=== PATIENT | male | born 1960 | race Caucasian/White ===

== ENCOUNTER 2022-05-04 07:15 | Day surgery (SDC) | payer BC ==
[~2022-05-04 07:15] MED LIST: ALPRAZolam 0.25 MG TAB PO PRN; ALPRAZolam 0.5 MG TAB PO PRN; ASPIRIN 325 MG TAB PO STA; ATORVASTATIN 80 MG TAB PO STA; HEPARIN SODIUM,PORCINE 10,000 UNIT in SODIUM CHLORIDE 0.9% 1,000 ML IRRIGATION PRN; HEPARIN SODIUM,PORCINE 2,500 UNIT in SODIUM CHLORIDE 0.9% 250 ML IRRIGATION PRN; NITROGLYCERIN SL TABS 0.4 MG TAB SUBLINGUAL PRN; SODIUM CHLORIDE 0.9% 1,000 ML in EMPTY BAG 1 BAG IV SCH
[2022-05-04 07:35] VITALS: RESP 18; TEMP 98.1
[2022-05-04 07:37] LABS: Basophils # (A) 0.1 k/uL (0-0.2); Basophils % (A) 1 %; Eosinophils # (A) 0.5 k/uL (0-0.7); Eosinophils % (A) 6 %; HCT 40.7 % (39.0-53.0); HGB 14.3 gm/dL (13.0-17.5); Lymphocytes # (A) 2.6 k/uL (1.0-4.8); Lymphocytes % (A) 29 %; MCH 32.4 pg (25.0-35.0); MCHC 35.1 g/dL (31.0-37.0); MCV 92.4 fL (80.0-100.0); Mean Platelet Volume 7.9; Monocytes # (A) 0.7 k/uL (0-1.0); Monocytes % (A) 8 %; Neutrophils # (A) 4.9 k/uL (1.3-7.7); Neutrophils % (A) 55 %; Platelet Count 290 k/uL (150-450); RDW 12.4 % (11.5-15.5)
[2022-05-04] MEDS ORDERED: VERAPAMIL 2.5 MG/ML 2 ML AMP ONE (07:45)
[2022-05-04] MEDS ORDERED: HEPARIN SODIUM 1,000 UN/ML (10ML VL) ONE (07:45)
[2022-05-04 07:49] LABS: African American GFR (CKD) >90 (>60 ml/min/1.73 sqM); Anion Gap 9 mmol/L; Blood Urea Nitrogen 15 mg/dL (9-20); Calcium 8.9 mg/dL (8.4-10.2); Carbon Dioxide 26 mmol/L (22-30); Chloride 105 mmol/L (98-107); Glucose 133 mg/dL (74-99); Non-African American GFR(CKD) >90 (>60 ml/min/1.73 sqM); Potassium 4.1 mmol/L (3.5-5.1); Sodium 140 mmol/L (137-145)
[2022-05-04] MEDS ORDERED: fentaNYL (PF) 50 MCG/ML 2 ML AMP IV ONE (08:01)
[2022-05-04] MEDS ORDERED: MIDAZOLAM 2 MG/2 ML VIAL IV ONE (08:01)
[2022-05-04] MEDS ORDERED: fentaNYL (PF) 50 MCG/ML 2 ML AMP ONE (08:03)
[2022-05-04] MEDS ORDERED: LIDOCAINE 1% INJ 10MG/ML (5 ML VIAL-PF) SQ ONE (08:04)
[2022-05-04] MEDS ORDERED: VERAPAMIL SYRINGE (5 MG/10 ML) INTRAARTER ONE (08:05)
[2022-05-04] MEDS ORDERED: HEPARIN SODIUM 1,000 UN/ML (10ML VL) IV ONE (08:07)
[2022-05-04] MEDS ORDERED: IOPAMIDOL-370 100ML BTL INJ ONE (08:13)
--- NOTE | 2022-05-04 08:17 | P.CARDCATH ---
Description of Procedure: PROCEDURES PERFORMED: Left heart catheterization, bilateral coronary angiography INDICATION: Abnormal stress test CONSENT:I have discussed the risks, benefits and alternative therapies for the above-mentioned procedure and for both sedation/analgesia as well as necessary blood product administration, if indicated, as they pertain to this patient. The patient has indicated understanding and acceptance of the risks and procedures discussed. PROCEDURE: After the risks, benefits and alternatives of the above mentioned procedure explained in detail with the patient, informed consent was obtained. Patient was taken to the catheterization lab and prepped and draped in usual fashion. 1% lidocaine was used to anesthetize the right radial artery. A 6- Mexican sheath was placed in the right radial artery using modified Seldinger technique. Left coronary angiography was performed with a 5-Mexican JL 3.5 catheter and right coronary angiography was performed with a 5-Mexican JR5 catheter in various views. A 5-Mexican FR5 catheter was inserted into the left ventricle and pressure measurements were obtained. The right radial sheath was removed and a TR band was placed with hemostasis achieved. The patient tolerated the procedure well. Patient was transported back to the post catheterization holding area in stable condition. Conscious Sedation: Patient was monitored under the direct supervision of vision of myself for conscious sedation using Versed and fentanyl for a total duration of 13 minutes HEMODYNAMICS: Aorta: 144/72 LV: 138/6, LVEDP 18 SELECTIVE CORONARY ARTERIOGRAPHY: LEFT MAIN: The left main is a large caliber vessel which bifurcates into the LAD and circumflex. There is no significant stenosis. LEFT ANTERIOR DESCENDING CORONARY ARTERY: LAD is a large caliber vessel which wraps around to the apex. There is no significant stenosis. LEFT CIRCUMFLEX CORONARY ARTERY: Left circumflex is a moderate caliber vessel without significant stenosis. RIGHT CORONARY ARTERY: The right coronary artery is a large caliber vessel which gives off a PDA and PLV branch and is the dominant vessel. There is no sig nificant stenosis. FINAL IMPRESSION: 1. Normal coronary arteries as described above. 2. Mildly elevated left sided filling pressures PLAN: 1. Aggressive risk factor modification per most recent ACC/AHA guidelines. 2. Follow-up in the office in 1-2 weeks.
[2022-05-04] MEDS ORDERED: HYDROmorphone 0.5 MG/0.5 ML SYRINGE IVP ONE (10:10)
[2022-05-04 11:37] VITALS: BP 149/79; PULSE 68
== END 2022-05-04 12:10 | disposition home or self-care (01) ==
LOC: CATHCVL 07:15
PROVIDERS: ATTEND Internal Medicine
DX: I44.2 Atrioventricular block, complete (principal); R94.39 Abnormal result of other cardiovascular function study; F17.200 Nicotine dependence, unspecified, uncomplicated; I10 Essential (primary) hypertension; E78.5 Hyperlipidemia, unspecified
CPT/HCPCS: 93458; 80048; 85025; C1769; C1894; J2250; J2001; J3010; J1644; J1170; Q9967

== ENCOUNTER → 2023-03-15 | Outpatient (CLI) | payer BC ==
--- NOTE | 2023-03-15 07:49 | US ---
EXAMINATION TYPE: US liver DATE OF EXAM: 03/15/2023 COMPARISON: NONE CLINICAL INDICATION: Male, 62 years old with history of R74.01 ELEVATION OF LEVELS OF LIVER TRANSAMIN ASE L; Elevated LFT's TECHNIQUE: Multiple sonographic images of the right upper quadrant are obtained. FINDINGS: EXAM MEASUREMENTS: Liver Length: 16.9 cm Gallbladder Wall: 0.4 cm CBD: 0.4 cm Right Kidney: 12.6 x 6.6 x 5.6 cm MECHANICAL LABORATORY TECHNICIAN NOTES: Pancreas: wnl, tail obscured by overlying bowel gas Liver: Heterogeneous, difficult to penetrate Gallbladder: Wall at the upper limits of normal measuring 4 mm in a nondistended lumen. no evidence for cholelithiasis. Evidence for sonographic Ascencio's sign: No CBD: wnl Right Kidney: Lobulated contour, no evidence of hydro IMPRESSION: No evidence for acute process. Hepatic steatosis.
== END | disposition home or self-care (01) ==
LOC: RADUSWWP 07:25
PROVIDERS: ATTEND Family Medicine
DX: K76.0 Fatty (change of) liver, not elsewhere classified (principal); R74.01 Elevation of levels of liver transaminase levels
CPT/HCPCS: 76705

== ENCOUNTER 2024-02-10 16:10 | Day surgery (SDC) | payer BC ==
[2024-02-10] MEDS: SODIUM CHLORIDE 0.9% 1,000 ML IV ONE (16:37)
[2024-02-10] MEDS: SODIUM CHLORIDE 0.9% 1,000 ML IV SCH (16:37)
[2024-02-10 16:48] VITALS: BP 142/84; RESP 16; TEMP 98.2
[2024-02-10] MEDS: IOPAMIDOL-370 100ML BTL IVP ONE ×2 (18:37)
[2024-02-10 18:52] VITALS: PULSE 72
--- NOTE | 2024-02-10 18:58 | P.EPPROC ---
- EP Procedure Note Electrophysiology Procedure Note: Diagnosis A 10 point reduction in LV systolic function with class II heart failure symptoms Recent change to 100% RV pacing, pacemaker dependency His sister has a history of left bundle branch block and cardiomyopathy In 2016 he presented with 2-1 heart block At that time his LV function was normal He has a dual-chamber pacemaker but with an ICD lead in case he had developed cardiomyopathy/sarcoidosis However, this was not the case and he is done well with dual-chamber pacing up until recently Recent drop in LV systolic function secondary to RV pacing Left upper extremity venogram Subclavian/axillary venous junction occlusion but reconstitution of this vein enough to permit passage of a LB/LV lead Cinefluoroscopy of the leads revealed an atrial lead, screw-in in the right atrial appendage and a single coil ICD lead in the RV apex but used as a pacemaker Dual-chamber pacemaker, chronic since 2016, Biotronik Plan Upgrade to a biventricular pacemaker for management of heart failure and reduced LV systolic function Discussed with the patient We will schedule the procedure for him
== END 2024-02-10 19:01 | disposition home or self-care (01) ==
LOC: CATHEP 16:10
PROVIDERS: ATTEND Internal Medicine Clinical Cardiac Electrophysiology
DX: I11.0 Hypertensive heart disease with heart failure (principal); I50.20 Unspecified systolic (congestive) heart failure; I44.2 Atrioventricular block, complete; I42.9 Cardiomyopathy, unspecified; I65.29 Occlusion and stenosis of unspecified carotid artery; D86.9 Sarcoidosis, unspecified; E78.5 Hyperlipidemia, unspecified; Z95.0 Presence of cardiac pacemaker; Z79.82 Long term (current) use of aspirin; Z87.891 Personal history of nicotine dependence; Z82.49 Family history of ischemic heart disease and other diseases of the circulatory system; Z79.899 Other long term (current) drug therapy
CPT/HCPCS: 36005; 75820

== ENCOUNTER 2024-09-04 07:43 | Day surgery (SDC) | payer BC ==
[2024-08-31 16:10] VITALS: BMI 34.4
[2024-09-04 08:16] LABS: Basophils # (A) 0.1 k/uL (0-0.2); Basophils % (A) 1 %; Eosinophils # (A) 0.6 k/uL (0-0.7); Eosinophils % (A) 7 %; HCT 41.3 % (39.0-53.0); HGB 13.8 gm/dL (13.0-17.5); Lymphocytes # (A) 2.8 k/uL (1.0-4.8); Lymphocytes % (A) 33 %; MCH 32.3 pg (25.0-35.0); MCHC 33.5 g/dL (31.0-37.0); MCV 96.6 fL (80.0-100.0); Mean Platelet Volume 7.7; Monocytes # (A) 0.6 k/uL (0-1.0); Monocytes % (A) 7 %; Neutrophils # (A) 4.4 k/uL (1.3-7.7); Neutrophils % (A) 51 %; Platelet Count 273 k/uL (150-450); RBC 4.28 m/uL (4.30-5.90); RDW 13.4 % (11.5-15.5); WBC 8.6 k/uL (3.8-10.6)
[2024-09-04] MEDS: SODIUM CHLORIDE 0.9% 1,000 ML IV SCH (08:16)
[2024-09-04] MEDS: IV FLUID CONTINUATION 1,000 ML IV ONE (08:20)
[2024-09-04 08:40] LABS: ALT 53 U/L (4-49); AST 57 U/L (17-59); African American GFR (CKD) >90 (>60 ml/min/1.73 sqM); Albumin 4.7 g/dL (3.5-5.0); Alkaline Phosphatase 104 U/L (38-126); Anion Gap 13 mmol/L; Blood Urea Nitrogen 16 mg/dL (9-20); Calcium 9.4 mg/dL (8.4-10.2); Carbon Dioxide 22 mmol/L (22-30); Chloride 103 mmol/L (98-107); Glucose 147 mg/dL (74-99); Non-African American GFR(CKD) 79 (>60 ml/min/1.73 sqM); Potassium 3.7 mmol/L (3.5-5.1); Sodium 138 mmol/L (137-145); Total Bilirubin 1.2 mg/dL (0.2-1.3); Total Protein 7.5 g/dL (6.3-8.2)
[2024-09-04] MEDS: HEPARIN SOD,PORK IN 0.45% NACL 25,000 UNIT in 0.45% NACL 1 250ML.BAG IV ONE (09:24)
[2024-09-04] MEDS ORDERED: fentaNYL (PF) 50 MCG/ML 2 ML AMP ONE (09:33)
[2024-09-04] MEDS ORDERED: PROPOFOL 10 MG/ML 20 ML VIAL IV ONE (09:33)
[2024-09-04] MEDS ORDERED: HEPARIN SODIUM,PORCINE 10,000 UNIT/ML 1 ML VIAL ONE (09:33)
[2024-09-04] MEDS ORDERED: PHENYLEPHRINE 10 MG/ML VIAL ONE (09:33)
[2024-09-04] MEDS ORDERED: SUCCINYLCHOLINE CHLORIDE 200 MG/10 ML VIAL IV ONE (09:33)
[2024-09-04] MEDS ORDERED: MIDAZOLAM 2 MG/2 ML VIAL ONE (09:33)
[2024-09-04] MEDS ORDERED: ISOPROTERENOL 250 MCG/1.25 ML SYR IV ONE (09:33)
[2024-09-04] MEDS: IOPAMIDOL-370 100ML BTL INJ ONE ×2 (09:54→11:24)
[2024-09-04] MEDS: LIDOCAINE 1% INJ 10MG/ML (20 ML MDV) SQ ONE (10:06)
--- NOTE | 2024-09-04 12:30 | P.HPCAR ---
History of Present Illness This is Dr. Rosa dictating an H/P on this patient The patient was interviewed and examined IMPRESSION / ASSESSMENT: Paroxysmal atrial fibrillation with RVR Pacemaker dependent with 100% RV pacing, status post Biotronik dual-chamber pacemaker Gradual reduction in LV systolic function with an ejection fraction now at 50%. 2 years back it was a 65% PLAN: A-fib ablation today. Heparin dose calculated. Continue Eliquis Left upper extremity venogram Subsequently upgrade to a biventricular pacemaker for management of RV pacing induced cardiomyopathy HPI Patient has gradually developed a reduction in LV systolic function. Alongside he has developed shortness of breath. He has had sustained atrial fibrillation of recent onset consistent with 100% RV pacing and early development of cardiomyopathy. Denies any fever chills cough expectoration. No single ROS: No fever chills or rigors, no cough, phlegm or expectoration, no nausea, vomiting or diarrhea, no hematuria, dysuria, no musculoskeletal complaints, no strokes or seizures, no skin lesions. EXAMINATION: Blood pressure 120/69 mmHg afebrile pulse rate in the 60s Breath sounds are clear no rhonchi no crackles Heart sounds S1-S2 normal no murmurs No lower extremity edema REVIEW OF LABS, ECG & MEDICAL DATA White count 8.6 thousand, hematocrit 41, platelet count 273,000 Electrolytes normal Physical Exam Vitals: Vital Signs Temp Pulse Resp BP BP Pulse Ox 09/04/24 12:19 65 16 120/69 96 09/04/24 12:04 96.8 F L 64 16 119/82 91 L 09/04/24 08:17 97.7 F 73 18 133/79 97 Intake and Output 09/03/24 09/04/24 09/04/24 22:59 06:59 14:59 Intake Total 944 Balance 944 Intake: IV 944 Other: Weight 114.3 kg Past Medical History Past Medical History: Hyperlipidemia, Hypertension, Osteoarthritis (OA), Rheumatoid Arthritis (RA) Additional Past Medical History / Comment(s): recent stress test, pacemaker see dr Rosa's h & p History of Any Multi-Drug Resistant Organisms: None Reported Past Surgical History: Joint Replacement, Orthopedic Surgery, Pacemaker Additional Past Surgical History / Comment(s): right knee replaced, ankle reconstructions Past Anesthesia/Blood Transfusion Reactions: No Reported Reaction Type of Cardiac Device: Permanent Pacemaker Device Placement Date:: 2015 Smoking Status: Former smoker - Past Family History Father Family Medical History: AICD/Pacemaker Physical Examination Vital Signs Temp Pulse Resp BP BP Pulse Ox 09/04/24 12:19 65 16 120/69 96 09/04/24 12:04 96.8 F L 64 16 119/82 91 L 09/04/24 08:17 97.7 F 73 18 133/79 97 Intake and Output 09/03/24 09/04/24 09/04/24 22:59 06:59 14:59 Intake Total 944 Balance 944 Intake: IV 944 Other: Weight 114.3 kg Results 09/04/24 08:00 09/04/24 08:00 Cardiac Enzymes 09/04/24 Range/Units 08:00 AST 57 (17-59) U/L CBC 09/04/24 Range/Units 08:00 WBC 8.6 (3.8-10.6) k/uL RBC 4.28 L (4.30-5.90) m/uL Hgb 13.8 (13.0-17.5) gm/dL Hct 41.3 (39.0-53.0) % Plt Count 273 (150-450) k/uL Comprehensive Metabolic Panel 09/04/24 Range/Units 08:00 Sodium 138 (137-145) mmol/L Potassium 3.7 (3.5-5.1) mmol/L Chloride 103 (98-107) mmol/L Carbon Dioxide 22 (22-30) mmol/L BUN 16 (9-20) mg/dL Creatinine 0.99 (0.66-1.25) mg/dL Glucose 147 H (74-99) mg/dL Calcium 9.4 (8.4-10.2) mg/dL AST 57 (17-59) U/L ALT 53 H (4-49) U/L Alkaline Phosphatase 104 (38-126) U/L Total Protein 7.5 (6.3-8.2) g/dL Albumin 4.7 (3.5-5.0) g/dL Current Medications Generic Name Dose Route Start Last Admin Trade Name Freq PRN Reason Stop Dose Admin Sodium Chloride 1,000 mls @ 20 mls/hr 09/04/24 08:07 09/04/24 08:16 Saline 0.9% IV 10/04/24 08:06 20 mls/hr .Q24H XI Administration Lactated Ringer's 1,000 mls @ 20 mls/hr 09/04/24 08:07 Lactated Ringers IV 10/04/24 08:06 .Q24H XI Intake and Output 09/03/24 09/04/24 09/04/24 22:59 06:59 14:59 Intake Total 944 Balance 944 Intake: IV 944 Other: Weight 114.3 kg Patient Weight 09/05/24 06:59 Weight 114.3 kg 09/04/24 08:00 09/04/24 08:00
--- NOTE | 2024-09-04 12:43 | P.EPPROC ---
- EP Procedure Note Electrophysiology Procedure Note: PROCEDURE A. fib ablation DIAGNOSIS Paroxysmal atrial fibrillation, symptomatic, refractory to therapy Associated RV paced cardiomyopathy with a drop in left ventricular ejection fraction by at least 15 percentage points RESULT No left atrial appendage mass seen on intracardiac echo Successful A. fib ablation/pulmonary vein isolation of all veins using cryo- ablation Complete entrance block in all 4 veins confirmed No evidence for phrenic nerve injury Left atrial septal ablation Esophageal deflection YES, right-sided esophagus Left upper extremity venogram shows a patent left subclavian and axillary vein PROCEDURE DETAILS Written informed consent prior to procedure. Patient brought to the EP lab. General anesthesia given. Heparin administered. A city maintained above 300 seconds Both groins prepped and draped per protocol and venous sheaths placed. Esophagus intubated, circa catheter for temperature monitoring an endoscope for possible esophageal deflection. Phrenic nerve monitoring performed. Esophageal temperature monitoring performed. Esophageal deflection performed if circa catheter overlapping with the balloon or circa temperature less than 27.5C Intracardiac echocardiography performed. Pericardium evaluated. Left atrial appendage evaluated. Left atrium evaluated along with pulmonary veins Transseptal catheterization performed under fluoroscopic guidance and intracardiac echo guidance Cryoablation sheath exchanged, balloon catheter along with achieve catheter placed in the left atrium. Pulmonary veins isolated in the following sequence: Left superior pulmonary vein followed by left inferior pulmonary vein, followed by right inferior pulmonary vein and lastly right superior pulmonary vein. Phrenic nerve stimulation along with capture thresholds within the SVC and right superior pulmonary vein to identify the phrenic nerve proximity to the cryo- balloon. Pulmonary veins isolated and confirmed with entrance and exit block. Phrenic nerve integrity confirmed at the end of the procedure Ablation of the left atrial septum performed with cannulation of the superior branch of the right inferior or the inferior branch of the right superior vein to achieve ablation of the posterior septum of the left atrium. Ablation of electrograms confirmed Diagnostic catheters for the high right atrium, His bundle, coronary sinus placed. LA and RA pressures recorded LA pressure: EP study with CS pacing and on high-dose Isopril QRS 185, QT 474, VT 213 Paced ventricular rhythm Sinus node recovery time 115 8 ms High-dose Isopril employed Burst stimulation performed No inducible atrial fibrillation Venous sheaths were removed and hemostasis assured with a closure device. Patient extubated and transferred to recovery PROCEDURES PERFORMED Diagnostic EP study CS pacing and recording Left and right transseptal catheterization Catheter the mapping of the tachycardia Intracardiac echocardiography Pulmonary vein isolation with transseptal and comprehensive EPS, [id number] Drug infusion, +[id number] Linear ablation, left atrium, +[id number]
[2024-09-04] MEDS ORDERED: ACETAMINOPHEN TAB 325 MG TAB PO PRN (14:59)
[2024-09-04 15:06] LABS: Chol/HDL Ratio 2.58 Ratio; LDL Cholesterol,Calculated 61.2 mg/dL (0.0-131.0)
[2024-09-04] MEDS: LACTATED RINGERS 1,000 ML IV SCH (16:45)
[2024-09-04] MEDS: carvediloL 12.5 MG TAB PO SCH (18:06)
[2024-09-04] MEDS: COLCHICINE 0.6 MG EACH PO SCH (21:23)
[2024-09-04] MEDS: APIXABAN 5 MG TAB PO SCH (21:23)
[2024-09-04] MEDS: ACETAMINOPHEN IV (For NPO) 1,000 MG in EMPTY BAG 1 BAG IVPB ONE (23:41)
[2024-09-05 08:14] VITALS: BP 113/72; PULSE 69; RESP 17; TEMP 99
[2024-09-05] MEDS: ATORVASTATIN 20 MG TAB PO SCH (09:35)
[2024-09-05] MEDS: amLODIPine 10 MG TAB PO SCH (09:35)
[2024-09-05] MEDS: ASPIRIN 81 MG PO SCH (09:35)
[2024-09-05] MEDS: VALSARTAN 160 MG TAB PO SCH (09:36)
[2024-09-05] MEDS: hydroCHLOROthiazide 25 MG TAB PO SCH (09:36)
--- NOTE | 2024-09-05 10:12 | P.PRLE ---
RE: Александр Gonzalez Dear Dr. Ruby Fountain underwent successful PVI for management of paroxysmal atrial fibrillation He has also developed reduction in LV systolic function and his atrial fibrillation heralds the onset of heart failure to come. After 2 months I will proceed with an upgrade to a biventricular pacemaker and hopefully this will result in an improvement in his LV function and reduction in signals of progressive heart failure including atrial fibrillation Thank you for entrusting me with the care of the patient Warm regards Sincerely Андрей Rosa
--- NOTE | 2024-09-06 11:23 | P.DS ---
Providers Expected date of discharge: 09/05/24 Attending physician: Андрей Rosa Primary care physician: Marty Ferrara [facility] Course: This is a 64-year-old male patient brought into the hospital under the care of Dr. Rosa due to paroxysmal atrial fibrillation with RVR. Patient underwent atrial fibrillation ablation yesterday. Patient remains in sinus rhythm. EKG has been reviewed by Dr. Rosa. No medication changes have been made. Patient to follow-up in the office in 1 week. Plan is to proceed with upgrade to a biventricular pacemaker to improve his LV function. This arrangement will be made through the office. Patient will be discharged today in stable condition. Physical examination: Gen: This is a 64-year-old male in no acute distress VS: reviewed HEENT: Head is atraumatic, normocephalic. Pupils equal, round. Sclerae is anicteric. NECK: Supple. No JVD. LUNGS: Clear to auscultation. No wheezes or rhonchi. No intercostal retractions. HEART: Regular rate and rhythm. ABDOMEN: Soft No tenderness. EXTREMITIES: No pedal edema. No calf tenderness. NEUROLOGICAL: Patient is awake, alert and oriented x3. Assessment: Paroxysmal atrial fibrillation with RVR status post ablation History of complete heart block status post dual-chamber pacemaker Associated RV paced cardiomyopathy Nurse practitioner note has been reviewed, I agree with documented findings and plan of care. Patient was seen and examined. Plan - Discharge Summary Discharge Rx Participant: Yes New Discharge Prescriptions: Continue Colchicine [Colcrys] 0.6 mg PO BID Aspirin 81 mg PO DAILY carvediloL 37.5 mg PO BID Atorvastatin [Lipitor] 20 mg PO DAILY amLODIPine [Norvasc] 10 mg PO DAILY Valsartan/Hydrochlorothiazide [Valsartan-Hctz 320-25 mg Tab] 1 each PO DAILY Apixaban [Eliquis] 5 mg PO BID allopurinoL 300 mg PO DAILY Discharge Medication List Colchicine [Colcrys] 0.6 mg PO BID 03/08/16 [History] Aspirin 81 mg PO DAILY 04/29/22 [History] Atorvastatin [Lipitor] 20 mg PO DAILY 04/29/22 [History] Valsartan/Hydrochlorothiazide [Valsartan-Hctz 320-25 mg Tab] 1 each PO DAILY 04/29/22 [History] amLODIPine [Norvasc] 10 mg PO DAILY 04/29/22 [History] Apixaban [Eliquis] 5 mg PO BID 08/31/24 [History] carvediloL 37.5 mg PO BID 08/31/24 [History] allopurinoL 300 mg PO DAILY 09/04/24 [History] Follow up Appointment(s)/Referral(s): Андрей Rosa MD [STAFF PHYSICIAN] - 09/12/24 10:45 am (Appointment made at the main office with Diana ) Patient Instructions/Handouts: Cardiac Ablation (DC), Electrophysiology Study (DC) Activity/Diet/Wound Care/Special Instructions: Post EP study - Ablation instructions 1. Keep access sites dry for 2 days. 2. No heavy lifting or straining for 2 days. 3. Avoid bending the hips repeatedly for 2 days. 4. You may go up and down stairs slowly 5. If you have had an ablation for atrial fibrillation or atrial flutter and are on a blood thinner, do not stop the blood thinner even temporarily for 3 months post ablation Call if the following is noted 1. Bleeding, increasing swelling or pain at the access sites. 2. Increasing chest discomfort, especially upon taking a deep breath. 3. Increasing shortness of breath, at rest or with exertion. 4. Undue cough / phlegm 5. Difficulty or pain while swallowing. 6. Pain or change in color in the extremities. 7. Fever, chills, rigors. 8. Increasing headache or neurologic symptoms. 9. Dizziness, fainting, palpitations For patients who have undergone an A-fib ablation /atrial flutter ablation Strict instruction; do NOT stop anticoagulation (Eliquis/Xarelto/Pradaxa) for the next 2 months temporarily, for any elective, nonurgent surgery. This increases the risk of stroke, post A-fib ablation Discharge Disposition: HOME SELF-CARE
== END 2024-09-05 10:06 | disposition home or self-care (01) ==
LOC: CATHEP 07:43 → 6NMEDSUR 11:39 → CATHEP 09-05 10:06
PROVIDERS: ATTEND Internal Medicine Clinical Cardiac Electrophysiology
DX: I48.0 Paroxysmal atrial fibrillation (principal); E78.5 Hyperlipidemia, unspecified; I10 Essential (primary) hypertension; I42.9 Cardiomyopathy, unspecified; M06.9 Rheumatoid arthritis, unspecified; Z79.01 Long term (current) use of anticoagulants; Z87.891 Personal history of nicotine dependence; Z79.899 Other long term (current) drug therapy
CPT/HCPCS: 93623; 93656; 93657; 86900; 86901; 80061; 80053; 85025; 86850; C1894; C1769; C1760 ×2; C1730 ×2; C1759; C1733; C1766; J2003; Q9967; J1644; 93005

== ENCOUNTER 2024-12-04 11:46 | Day surgery (SDC) | payer BC ==
[2024-11-30 11:35] VITALS: BMI 32.5
[~2024-12-04 11:46] MED LIST changes: -ALPRAZolam 0.25 MG TAB PO PRN; -ALPRAZolam 0.5 MG TAB PO PRN; -ASPIRIN 325 MG TAB PO STA; -ATORVASTATIN 80 MG TAB PO STA; -HEPARIN SODIUM,PORCINE 10,000 UNIT in SODIUM CHLORIDE 0.9% 1,000 ML IRRIGATION PRN; -HEPARIN SODIUM,PORCINE 2,500 UNIT in SODIUM CHLORIDE 0.9% 250 ML IRRIGATION PRN; -NITROGLYCERIN SL TABS 0.4 MG TAB SUBLINGUAL PRN; -SODIUM CHLORIDE 0.9% 1,000 ML in EMPTY BAG 1 BAG IV SCH; +ceFAZolin 1 GM in SODIUM CHLORIDE 0.9% IRRIG BTL 250 ML IRRIGATION PRN
[2024-12-04] MEDS: SODIUM CHLORIDE 0.9% 1,000 ML IV SCH ×2 (14:11→18:16)
[2024-12-04] MEDS ORDERED: MIDAZOLAM 2 MG/2 ML VIAL ONE (14:39)
[2024-12-04] MEDS: IV FLUID CONTINUATION 1,000 ML IV ONE (14:39)
[2024-12-04] MEDS ORDERED: HYDROmorphone (PF) 1 MG/ML ONE (14:39)
[2024-12-04] MEDS ORDERED: LIDOCAINE 1% INJ 10MG/ML (20 ML MDV) ONE (14:39)
[2024-12-04] MEDS ORDERED: PHENYLEPHRINE-0.9% NACL SYG 1,000 MCG/10 ML SYRINGE ONE (14:39)
[2024-12-04] MEDS ORDERED: PROPOFOL 10 MG/ML 20 ML VIAL IV ONE (14:39)
[2024-12-04] MEDS ORDERED: fentaNYL (PF) 50 MCG/ML 2 ML AMP ONE (14:39)
[2024-12-04 14:40] LABS: African American GFR (CKD) 48 (>60 ml/min/1.73 sqM); Anion Gap 13 mmol/L; Blood Urea Nitrogen 25 mg/dL (9-20); Calcium 9.3 mg/dL (8.4-10.2); Carbon Dioxide 20 mmol/L (22-30); Chloride 106 mmol/L (98-107); Glucose 116 mg/dL (74-99); Non-African American GFR(CKD) 42 (>60 ml/min/1.73 sqM); Potassium 3.9 mmol/L (3.5-5.1); Sodium 139 mmol/L (137-145)
[2024-12-04] MEDS: ROPIVACAINE 5 MG/ML 30 ML VIAL MISCELLANE ONE (15:25)
[2024-12-04] MEDS: LIDOCAINE 1% INJ 10MG/ML (20 ML MDV) SQ ONE (15:25)
[2024-12-04] MEDS: VANCOMYCIN 1,250 MG in SODIUM CHLORIDE 0.9% 250 ML IVPB ONE (15:30)
--- NOTE | 2024-12-04 17:47 | P.PRLE ---
RE: Александр Gonzalez Dear Marty Fountain underwent upgrade to a biventricular pacemaker with left bundle pacing for management of RV pacing induced cardiomyopathy. I am very hopeful that this will result in an improvement in his LV function in the next 3 to 4 months. He will continue all his other medications unchanged. He maintains sinus rhythm after his prior A-fib ablation and will also continue Eliquis. Thank you for entrusting me with the care of the patient Warm regards Sincerely Андрей Rosa
[2024-12-04 17:50] LABS: Basophils # (A) 0.11 10*3/uL (0.00-0.10); Basophils % (A) 1.3 %; Eosinophils # (A) 0.57 10*3/uL (0.04-0.35); Eosinophils % (A) 6.6 %; HCT 34.9 % (39.6-50.0); HGB 12.2 g/dL (13.0-17.0); Lymphocytes # (A) 3.96 10*3/uL (0.90-5.00); Lymphocytes % (A) 45.9 %; MCH 32.9 pg (27.0-32.0); MCV 94.1 fL (80.0-97.0); Mean Platelet Volume 9.2 fL (9.5-12.2); Monocytes # (A) 0.91 10*3/uL (0.20-1.00); Monocytes % (A) 10.6 %; Neutrophils # (A) 3.05 10*3/uL (1.80-7.70); Neutrophils % (A) 35.4 %; Platelet Count 213 10*3/uL (140-440); RBC 3.71 10*6/uL (4.40-5.60); RDW 12.9 % (11.5-14.5); WBC 8.62 10*3/uL (4.50-10.00)
--- NOTE | 2024-12-04 18:05 | XR ---
EXAMINATION TYPE: XR chest 1V portable DATE OF EXAM: 12/04/2024 5:53 PM COMPARISON: Chest radiographs from 03/11/2016 TECHNIQUE: XR chest 1V portable Portable AP radiograph of the chest. CLINICAL INDICATION:Male, 64 years old with history of Lead placement check; FINDINGS: Lungs/Pleura: There is no evidence of pleural effusion, focal consolidation, or pneumothorax. Pulmonary vascularity: Unremarkable. Heart/mediastinum: Cardiomediastinal silhouette is enlarged and stable. Three lead cardiac conduction device overlying the left hemithorax with lead tips projecting over the right ventricle, right atriu m and coronary sinus. Musculoskeletal: No acute osseous pathology. IMPRESSION: 1. No acute cardiopulmonary disease/process. 2. Three lead cardiac conduction device overlying the left hemithorax with lead tips projecting over the right ventricle, right atrium and coronary sinus. [facility], , 12/04/2024 6:02 PM
[2024-12-04] MEDS: ACETAMINOPHEN IV (For NPO) 1,000 MG in EMPTY BAG 1 BAG IVPB ONE (18:09)
--- NOTE | 2024-12-04 19:09 | P.EPPROC ---
- EP Procedure Note Electrophysiology Procedure Note: Diagnosis Cardiomyopathy, early congestive heart failure, early atrial fibrillation secondary to 100% RV pacing, underlying complete heart block Status post dual-chamber pacemaker, Biotronik, implanted in 2016. Dual-chamber pacemaker at [facility] Procedure plan for an upgrade to a biventricular pacemaker Procedure Biventricular pacemaker upgrade with conduction system pacing (left bundle pacing) Details Patient was brought to the EP lab in a fasting state. Written informed consent was obtained prior to the procedure. Conscious sedation provided by DOCK COORDINATOR. IV antibiotics administered. Local anesthesia administered. A 4 cm incision made in the pectoral area. Subfascial pocket made. Venous accesses obtained Calcified capsule. Careful dissection to remove the capsule and freed the leads. Leads interrogated thereafter and good condition with stable parameters. Pocket dissection took a long time on account of the calcification. Venous sheaths placed. Leads placed in the right heart. 2 sets of pacing cables were used; one for backup temporary pacing and the other for assessment of current of injury and signal analysis. A deflected sheath was prepped. A coronary sinus decapolar catheter was placed within this sheath. The catheter along with the sheath was then passed into the right heart, the catheter was prolapsed across the tricuspid valve, into the right ventricle and then further into the right ventricular outflow tract across the pulmonic valve into the pulmonary artery. This sheath was slid over this decapolar catheter into the RVOT. Thereafter the catheter last sheath assembly was withdrawn from the RVOT along the septum to the mid septal area. The sheath was appropriately to to map the right ventricular aspect of the septum. The decapolar catheter was withdrawn, the sheath flushed again and the screw-in pacing lead placed within the sheath. Further detailed unipolar pace-mapping of the septum was performed and once the appropriate based morphology was obtained on lead V1, the lead was screwed into the septum. The lead was screwed in 4-5 returns at a time while monitoring the current of injury, the pacing impedance changes and the paced QRS morphology. The stimulus to peak of V6 QRS was measured at each step. Once a QR or rSR pattern of paced QRS in lead V1 was obtained, a left bundle signal was sought. Impedance was measured and thresholds were measured. An impedance drop of 100-200 ohms but above 550 ohms was targeted along with an unchanged vector of the current of injury signal. The final positioning was based on the QRS morphology in lead V1 and a short stimulus to peak of the V6 QRS of less than 90 ms. The sheath was withdrawn, stability of the pacing lead deep in the septum was confirmed on KNIGHT and SWEDISH views and the sheath was slipped and an adequate heel was provided for the lead. Unipolar and bipolar electrogram morphology obtained. Left bundle lead parameters: Pacing impedance 855 ohms and pacing threshold less than 0.4 V at 0.5 ms, paced R waves signals measured at 22 mV Mapping of the septum performed. On the septal side RV surface, paced morphology showed notching in the terminal end of the QRS in lead V1 Final unipolar paced morphology had an RSR prime morphology Intrinsic right bundle branch block beat induced spontaneously Time to peak activation in lead V6 was 74 ms on this beat Time to peak activation for the unipolar tip, left bundle pacing was 86 ms with a delta of 12 ms Unipolar ring pacing consistent with deep septal pacing had a time to peak activation of 104 ms RV apical pacing had a time to peak activation of 131 ms The delta between unipolar ring and new pulmonary polar tip pacing was 18 ms, for time to peak activation The delta between unipolar tip and RV apical pacing was 45 ms for time to peak activation Atrial lead parameters chronic Biotronik lead P waves 3 mV pace impedance 532 ohms and pacing threshold 0.5 V at 0.4 ms Biotronik RV lead] ICD single coil but closed, no R waves, patient pacemaker dependent. Pacing impedance 1026 ohms and pacing threshold 2.2 V at 0.4 ms Device health club attendant. Biotronik dual-chamber pacemaker explanted. Medtronic biventricular pacemaker implanted. Percepta IT HELP DESK MANAGER-P MRI Dual-chamber pacemaker device connected to the leads and placed in the subfascial pocket. Antibiotic pouch placed Patient tolerated the procedure well without acute complications Pacemaker programming DDD, paced AV delay of 180 ms. LV RV offset of 80 ms, unipolar LV pacing This was a long procedure requiring mapping of the right ventricular septum, deep septum in the left bundle area with excellent result with a paced QRS morphology in the unipolar pacing mode of rSR' with a time to peak activation of 86 ms in lead V6, only 12 ms greater then the spontaneous right bundle beat Pocket was calcified. Calcific capsule was carefully excised. Lead condition was stable
[2024-12-04 19:15] VITALS: PULSE 76; TEMP 98
[2024-12-04] MEDS: carvediloL 12.5 MG TAB PO SCH (20:32)
--- NOTE | 2024-12-04 20:47 | XR ---
EXAMINATION TYPE: XR chest 2V DATE OF EXAM: 12/04/2024 7:56 PM CLINICAL INDICATION:Male, 64 years old with history of EVALUATE LEAD PLACEMENT; [facility] COMPARISON: Chest radiograph from same day TECHNIQUE: XR chest 2V Frontal view of the chest. FINDINGS: Stable position of cardiac conduction device and leads overlying the hemithorax. No other significant change from the x-ray complete images prior. IMPRESSION: No acute cardiopulmonary disease/process or significant change from the chest radiograph acquired jus t prior. [facility], , 12/04/2024 8:45 PM
[2024-12-04] MEDS: LACTATED RINGERS 1,000 ML IV SCH (20:49)
[2024-12-04 22:49] VITALS: BP 118/71; RESP 17
[2024-12-04] MEDS ORDERED: ACETAMINOPHEN TAB 325 MG TAB PO PRN (23:59)
[2024-12-05] MEDS ORDERED: ATORVASTATIN 20 MG TAB PO SCH (09:00)
== END 2024-12-04 21:53 | disposition home or self-care (01) ==
LOC: CATHEP 11:46 → 6NMEDSUR 16:50 → CATHEP 21:53
PROVIDERS: ATTEND Internal Medicine Clinical Cardiac Electrophysiology
DX: Z45.018 Encounter for adjustment and management of other part of cardiac pacemaker (principal); I48.0 Paroxysmal atrial fibrillation; I42.9 Cardiomyopathy, unspecified; I44.2 Atrioventricular block, complete; I50.9 Heart failure, unspecified; I11.0 Hypertensive heart disease with heart failure; E78.5 Hyperlipidemia, unspecified; M19.90 Unspecified osteoarthritis, unspecified site; Z87.891 Personal history of nicotine dependence; Z82.49 Family history of ischemic heart disease and other diseases of the circulatory system; Z89.511 Acquired absence of right leg below knee; Z79.02 Long term (current) use of antithrombotics/antiplatelets; Z79.82 Long term (current) use of aspirin; Z79.899 Other long term (current) drug therapy
CPT/HCPCS: 33207; 33233; 86900; 86901; 80048; 84443; 85025; 86850; 71045; 71046; C1769 ×2; C2621; C1730; C1887; C1892; C1898; J2250; J0690; J2003; J3010; J1171; J2795; J0131; J2704; J2371